=== PATIENT | female | born 2000 | race Caucasian/White ===

== ENCOUNTER 2024-05-31 21:03 | Emergency (ER) | payer OTHER, SELFPAY ==
--- NOTE | ~2024-05-31 | CT_ITS ---
EXAMINATION: CT ABDOMEN AND PELVIS WITH CONTRAST CLINICAL INFORMATION: Pain. COMPARISON: None available. TECHNIQUE: Multidetector volumetric images were obtained from the superior aspect of the liver through the pubic symphysis following administration 85 mL of Omnipaque 350 intravenous contrast. Sagittal and coronal reformatted images were obtained on the technologist's workstation. Oral contrast: No This CT examination was performed using dose optimization techniques as appropriate, variously including the following: *Automated exposure control *Adjustment of mA and/or kV according to patient size (this includes techniques or standardized protocols for targeted exams where dose is matched to indication/reason for exam; i.e. extremities or head) *Use of iterative reconstruction technique DLP: 488 mGy-cm FINDINGS: LUNG BASES: The visualized lung bases are unremarkable. LIVER, GALLBLADDER, AND BILIARY TREE: The liver is normal in size, shape, and attenuation. No focal hepatic lesion or biliary ductal dilatation is present. The gallbladder is unremarkable with no evidence of radiopaque gallstones, gallbladder wall thickening, or obvious pericholecystic inflammatory changes. PANCREAS: Unremarkable. SPLEEN: Unremarkable. ADRENAL GLANDS: Unremarkable. KIDNEYS AND URETERS: The kidneys are normal in size, shape, and attenuation. No hydronephrosis, hydroureter, or calculi seen. No perinephric stranding. BLADDER: Unremarkable. GASTROINTESTINAL TRACT: The small and large bowel are unremarkable. The appendix is unremarkable. ABDOMINAL WALL: No significant hernia is appreciated. LYMPH NODES: Normal. VASCULAR: Unremarkable. PELVIC VISCERA: There is a 3.7 cm low-density structure within the left adnexa. There is a small amount of free fluid within the pelvis. OSSEOUS STRUCTURES: There is mild loss of height of the T11 and T12 vertebral bodies. CT/CT abdomen pelvis w IV con IMPRESSION: 1. 3.7 cm low-density structure within the left adnexa, likely a cyst. 2. Small amount of free fluid within the pelvis. Consider recent cyst rupture. 3. Mild loss of height of the T11 and T12 vertebral bodies of uncertain acuity. 4. The pancreas is unremarkable. Fleischner guidelines were followed.
[2024-05-31 21:24] VITALS: BP 107/74; PULSE 92; RESP 18; TEMP 37.1; O2SAT 95; BMI 26.6
[2024-05-31 21:49] LABS: MANUAL DIFF FLAG NO
[2024-05-31 21:50] LABS: Basophils Percent Auto 0.4 % (0-2); Eosinophils Percent Auto 0.1 % (0-4); Hemoglobin 14.9 g/dl (12.0-16.0); Imm Gran Abs Auto 0.02 X10*3/uL (0.00-0.03); Imm Gran Pct Auto 0.3 % (0.0-0.4); Lymphocytes Absolute Auto 1.3 X10*3/uL (1.2-4.9); Lymphocytes Percent Auto 16.4 % (20-40); Mean Corpuscular HGB Conc 35.5 g/dl (31.0-35.0); Mean Corpuscular Hemoglobin 29.2 pg (27.0-33.0); Mean Corpuscular Volume 82.2 fL (80.0-98.0); Mean Platelet Volume 11.1 fL (9.4-12.3); Monocytes Absolute Auto 0.7 X10*3/uL (0.1-1.2); Monocytes Percent Auto 8.5 % (2-11); Neutrophils Absolute Auto 5.8 x10*3/uL (2.0-8.3); Neutrophils Percent Auto 74.3 % (45-73); Platelet Count 223 X10*3/uL (160-400); Red Blood Count 5.11 X10*6/uL (4.20-5.50); Red Cell Distribution Width 12.6 % (11.0-16.0); White Blood Count 7.9 X10*3/uL (4.8-10.8)
[2024-05-31 22:12] LABS: Alanine Aminotransferase 72 U/L (0-31); Albumin Level 4.8 g/dL (3.5-5.0); Alkaline Phosphatase 73 U/L (39-117); Anion Gap 13 (12-20); Aspartate Amino Transferase 42 U/L (5-31); Bilirubin Direct 0.2 mg/dL (0.0-0.5); Blood Urea Nitrogen 9 mg/dL (9-16); Calcium 9.8 mg/dL (8.4-10.2); Carbon Dioxide 24 mmol/L (22-29); Chloride 108 mmol/L (96-108); Creatinine Clr Calc Pharmacy 104.6; Estimated Glomerular Filt Rate > 60; Glucose Random 93 mg/dL (60-115); Potassium 3.5 mmol/L (3.3-5.1); Sodium 141 mmol/L (135-145); Total Protein 8.1 g/dL (6.5-8.0)
--- NOTE | 2024-05-31 23:58 | PC.NURSE ---
Pt ca&ox4, no signs of distress Pt family at bedside. 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 Has taken omeprazole w/ no relief. Denies NKDA Pt reports 6/10 ULQ pain w/ vomiting & diarrhea for months Pt reports blood in vomit yesterday Plan of care ongoing.
[2024-06-01 00:04] VITALS: BP 129/80; PULSE 77; RESP 16; O2SAT 97
[2024-06-01 00:42] LABS: Appearance Urine Cloudy; Color Urine Yellow; Glucose Urine UA Negative (Negative); Leukocyte Esterase Urine Trace (Negative); Nitrite Urine Negative (Negative); PH 6.5 (5.0-9.0); UMIC TRIGGER UACC YES; Urine Blood Negative (Negative); Urine Ketones 15 mg/dL (Negative); Urine Protein Trace mg/dL (Neg-Trace)
[2024-06-01 00:43] LABS: UPreg QC Valid YES; Urine Pregnancy NEGATIVE (NEGATIVE)
[2024-06-01 00:47] LABS: Bacteria Urine 3+ (None Seen); Hyaline Casts Urine 0-2 /LPF (0-2); RBC Urine 0-2 /HPF (0-2); WBC Urine 0-5 /HPF (0-5)
--- NOTE | 2024-06-01 01:15 | ED.GENADULT ---
HPI - General Adult General Chief complaint: Nausea/Vomiting/Diarrhea Stated complaint: nausea, vomiting Time Seen by Provider: 06/01/24 01:15 History of Present Illness ED Provider: Adrián SEVILLA narrative: The patient is a 23-year-old woman who says that over the past 2 months she has had a lot of problems with intermittent nausea, vomiting, and left upper quadrant abdominal pain. She says that she has occasionally used [id number] omeprazole on similar medications and did not feel that it was helpful. She says that she has missed work because of her abdominal symptoms. She says that in the last several months she has lost about 12 lb unintentionally. She has not had fever, sweats, chills. She says she has frequent loose stools. Today she had nausea and vomiting and she thought there was blood in the emesis. She has not had any black stools. 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 She does not have a primary care doctor. She says she has been in contact with the [facility] transmission engineer Dr. Bowser but does not have any definite appointment with this physician. The patient says that she came to the emergency room today because of the blood she saw in her emesis. She has had no fever, sweats, chills. Related Data Previous Rx's ?Medication ?Instructions ?Recorded omeprazole 40 mg capsule,delayed 40 mg PO DAILY #30 caps 06/01/24 release ondansetron 4 mg disintegrating 4 mg PO Q6H PRN nausea and 06/01/24 tablet vomiting #14 tabs sucralfate 1 gram tablet 1 g PO TID PRN abdominal pain #60 06/01/24 tabs Allergies Allergy/AdvReac Type Severity Reaction Status Date / Time grapefruit Allergy Swelling Verified 05/31/24 21:27 Review of Systems Review of Systems: Yes all other systems are reviewed and are negative PMFSH Social History Social History Smoked in Last 30 Days: No Use of substances other than those prescribed or required for medical reasons: Yes Substance Use Type: Marijuana Advance Directives: No Advance Directives Information Provided: No Physical Exam ED Vital Signs: Vital Signs - 24 hr 05/31/24 21:24 06/01/24 00:04 Temperature 98.7 F Pulse Rate 92 77 Respiratory Rate 18 16 Blood Pressure 107/74 129/80 Pulse Oximetry 95 97 Oxygen Delivery Method Room Air Room Air BMI result Body Mass Index 26.6 Const Other: The patient is awake and alert. She does not appear in acute distress. HENMT Other: Face is symmetrical. Mucous membranes moist. Eyes General: appearance normal, both eyes and all related structures Neck Other: Moving her neck easily Resp Effort & Inspection: normal respiratory effort Auscultation: clear to auscultation bilaterally Cardio Rate: regular rate Rhythm: regular rhythm Heart sounds: S1 normal heart sound present and S2 normal heart sound present GI Other: The abdomen is flat and soft. There is left upper quadrant tenderness without rebound or guarding. The other quadrants of the abdomen are nontender. General: Yes no CVA tenderness Back/Spine/Pelvis Back: no CVA tenderness Skin Other: Skin is pale and dry Neuro Other: The patient is awake and alert with a normal mental status. Cranial nerves are grossly intact. She moves her extremities normally. Extrem Other: No peripheral edema Medications Administered Discontinued Medications Generic Name Dose Route Start Last Admin Trade Name Freq PRN Reason Stop Dose Admin Famotidine 40 mg 06/01/24 02:30 06/01/24 03:23 Famotidine/Pf 20 Mg/2 Ml Vial IVPUSH 06/01/24 02:31 40 mg ONCE ONE Administration Sodium Chloride 1,000 mls @ 999 mls/hr 06/01/24 02:30 06/01/24 03:23 Ns IV 06/01/24 03:30 999 mls/hr .Q1H1M WM Administration Iohexol 85 ml 06/01/24 03:05 06/01/24 03:06 Iohexol 350 Mg/Ml 100 Ml Infus..Btl IV 06/01/24 03:06 85 ml ONCE ONE Administration Sucralfate 1 gm 06/01/24 01:25 06/01/24 01:44 Sucralfate Oral Suspension 1 Gm/10 Ml Oral.Susp PO 06/01/24 01:26 1 gm ONCE ONE Administration Medical Decision Making Medical Decision Making MDM Narrative: The patient is a 23-year-old female who describes having several months of problems with frequent nausea and vomiting. Her test is negative. Her CBC shows a white count of 7.9, hemoglobin 14.9, platelet count of 223, 74.3% neutrophils, 16.4% lymphocytes. Her chemistry showed normal electrolytes, normal renal function, mild transaminitis with an AST of 42 and an ALT of 72. CRP normal at 0.43. Lipase mildly elevated at 141. Given the left upper quadrant tenderness and an elevated lipase a CT of the abdomen and pelvis was done. This shows a normal pancreas. There is some slight free fluid in the pelvis and a left adnexal cyst. These findings seem incidental to the patient's symptoms. I do not think the patient is having a significant upper GI bleed. I suspect that the patient may have gastritis. Ultimately she could have a vomiting syndrome related to marijuana. The patient will be prescribed omeprazole 40 mg daily and sucralfate as well. She is advised to stop using any marijuana or marijuana containing products. Apparently she hopes to arrange for an upper endoscopy with a transmission engineer at [facility], Dr. Bowser. She is encouraged to pursue this. She should also work on getting a regular doctor. She will be discharged. She should return if worse. Lab Data 05/31/24 21:45 05/31/24 21:45 Labs: Lab Results 05/31/24 06/01/24 Range/Units 21:45 00:36 WBC 7.9 (4.8-10.8) X10*3/uL RBC 5.11 (4.20-5.50) X10*6/uL Hgb 14.9 (12.0-16.0) g/dl Hct 42.0 (37.0-47.0) % MCV 82.2 (80.0-98.0) fL MCH 29.2 (27.0-33.0) pg MCHC 35.5 H (31.0-35.0) g/dl RDW 12.6 (11.0-16.0) % Plt Count 223 (160-400) X10*3/uL MPV 11.1 (9.4-12.3) fL Immature Gran % (Auto) 0.3 (0.0-0.4) % Neut % (Auto) 74.3 H (45-73) % Lymph % (Auto) 16.4 L (20-40) % [place] % (Auto) 8.5 (2-11) % Eos % (Auto) 0.1 (0-4) % Baso % (Auto) 0.4 (0-2) % Lymph # (Auto) 1.3 (1.2-4.9) X10*3/uL [place] # (Auto) 0.7 (0.1-1.2) X10*3/uL Eos # (Auto) 0.0 (0.0-0.4) X10*3/uL Baso # (Auto) 0.0 (0.0-0.2) X10*3/uL Abs Immat Gran (auto) 0.02 (0.00-0.03) X10*3/uL Absolute Neuts (auto) 5.8 (2.0-8.3) x10*3/uL Absolute Nucleated RBC 0.000 (0.0-0.012) X10*3/uL Nucleated RBC % (auto) 0.0 (0.0-0.2) /100WBC Sodium 141 (135-145) mmol/L Potassium 3.5 (3.3-5.1) mmol/L Chloride 108 (96-108) mmol/L Carbon Dioxide 24 (22-29) mmol/L Anion Gap 13 (12-20) BUN 9 (9-16) mg/dL Creatinine 0.82 (0.5-1.4) mg/dL Estim Creat Clear Calc 104.6 Estimated GFR > 60 Random Glucose 93 (60-115) mg/dL Calcium 9.8 (8.4-10.2) mg/dL Total Bilirubin 1.0 (0.0-1.0) mg/dL Direct Bilirubin 0.2 (0.0-0.5) mg/dL AST 42 H (5-31) U/L ALT 72 H (0-31) U/L Alkaline Phosphatase 73 (39-117) U/L C-Reactive Protein 0.43 (< or = 0.50) mg/dL Total Protein 8.1 H (6.5-8.0) g/dL Albumin 4.8 (3.5-5.0) g/dL Lipase 141 H (8-78) U/L Urine Color Yellow Urine Appearance Cloudy Urine pH 6.5 (5.0-9.0) Ur Specific [place] 1.020 (1.005-1.025) Urine Protein Trace (Neg-Trace) mg/dL Urine Glucose (UA) Negative (Negative) mg/dL Urine Ketones 15 (Negative) mg/dL Urine Blood Negative (Negative) Urine Nitrite Negative (Negative) Ur Leukocyte Esterase Trace H (Negative) Urine RBC 0-2 (0-2) /HPF Urine WBC 0-5 (0-5) /HPF Ur Squamous Epith Cells 11-20 (0-2) /HPF Urine Bacteria 3+ (None Seen) Hyaline Casts 0-2 (0-2) /LPF Urine Test NEGATIVE (NEGATIVE) Discharge Plan Discharge Clinical Impression: Nausea & vomiting, Left upper quadrant abdominal pain Patient Disposition: Home, Self-Care Instructions: Gastritis (ED) Additional Instructions: I think that gastritis is probably the most likely explanation for your symptoms. I have sent a prescription for higher dose omeprazole to your pharmacy. Please take this daily for a month the see if it helps. I also sent a prescription for sucralfate (Carafate) which you may try on has an as-needed basis. I have also sent a prescription for ondansetron which you may use as needed for nausea. Please continue your efforts to get a primary care doctor and to see a transmission engineer. I would recommend avoiding any marijuana or THC products for a few weeks has a trial to see if this is helpful. Return to the emergency room if significantly worse, especially if you develop a fever or black stools. Prescriptions: New omeprazole 40 mg capsule,delayed release(DR/EC) 40 mg PO DAILY Qty: 30 0RF sucralfate 1 gram tablet 1 g PO TID PRN (Reason: abdominal pain) Qty: 60 0RF ondansetron 4 mg tablet,disintegrating 4 mg PO Q6H PRN (Reason: nausea and vomiting) Qty: 14 0RF Print Language: Bulgarian
[2024-06-01 01:43] LABS: C Reactive Protein 0.43 mg/dL (< or = 0.50)
[2024-06-01] MEDS: Sucralfate Oral Suspension 1 GM/10 ML ORAL.SUSP PO (01:44)
--- NOTE | 2024-06-01 01:46 | PC.NURSE ---
Pt medicated per [facility] Plan of care ongoing.
[2024-06-01 02:18] LABS: Lipase 141 U/L (8-78)
--- NOTE | 2024-06-01 03:01 | PC.NURSE ---
Pt with CT. Plan of care ongoing.
[2024-06-01] MEDS: iohexoL 350 MG/ML 100 ML INFUS..BTL 85 ML IV (03:06)
[2024-06-01] MEDS: Famotidine/PF 20 MG/2 ML VIAL 40 MG IVPUSH (03:23)
[2024-06-01] MEDS: 0.9 % Sodium Chloride 1,000 ML 999 ML IV (03:23)
[2024-06-01 04:00] VITALS: BP 130/85; PULSE 82; RESP 14; TEMP 37.2; O2SAT 96
[2024-06-01 04:13] VITALS: BP 130/85; PULSE 82; RESP 14; TEMP 37.2; O2SAT 96
== END 2024-06-01 04:15 | disposition home or self-care (01) ==
PROVIDERS: Emergency Provider Emergency Medicine
DX: R11.2 Nausea with vomiting, unspecified (principal); R10.12 Left upper quadrant pain; F12.90 Cannabis use, unspecified, uncomplicated
CPT/HCPCS: 36415; 74177; 80048; 80076; 81001; 81025; 83690; 85025; 86140; 96374; 99284; Q9967

== ENCOUNTER 2025-03-20 13:00 | Outpatient (RCR) | payer OTHER, SELFPAY ==
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
[2025-03-06 10:27] VITALS: BMI 28.5
[2025-03-06 10:28] VITALS: BP 140/88; PULSE 76; TEMP 37.2
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
== END 2025-03-20 23:59 | disposition home or self-care (01) ==
LOC: HO.PHPA 13:00
PROVIDERS: Visit Provider Psychiatry & Neurology Psychiatry
DX: F43.0 Acute stress reaction (principal); F41.0 Panic disorder [episodic paroxysmal anxiety]; Z79.899 Other long term (current) drug therapy
CPT/HCPCS: 90791; 90853